=== PATIENT | female | born 2000 | race African-American/Black ===

== ENCOUNTER 2021-01-20 19:31 | Emergency (ER) | payer MEDICAID, OTHER, SELFPAY ==
--- NOTE | 2021-01-20 22:02 | RAD ---
Portable frontal chest radiograph: 01/20/2021 COMPARISON: None HISTORY: Syncope FINDINGS: Lungs are clear. Heart and mediastinal contours appear within normal limits. IMPRESSION: No acute findings.
== END 2021-01-20 23:37 | disposition home or self-care (01) ==
LOC: ERS 19:31
DX: R55 Syncope and collapse (principal); S01.511A Laceration without foreign body of lip, initial encounter; W18.2XXA Fall in (into) shower or empty bathtub, initial encounter
CPT/HCPCS: 71045; 93005

== ENCOUNTER 2022-05-21 21:34 | Emergency (ER) | payer MEDICAID, SELFPAY | END 2022-05-21 21:58 | LOC: ERS 21:34 | DX: F43.10 Post-traumatic stress disorder, unspecified (principal) | CPT/HCPCS: 99284 ==

== ENCOUNTER 2022-06-30 01:56 | Emergency (ER) | payer SELFPAY | END 2022-06-30 02:25 | disposition home or self-care (01) | LOC: ERS 01:56 | DX: F41.9 Anxiety disorder, unspecified (principal); E78.5 Hyperlipidemia, unspecified | CPT/HCPCS: 99283 ==

== ENCOUNTER 2023-06-15 16:05 | Emergency (ER) | payer SELFPAY ==
[2023-06-15 16:41] LABS: BHCG - Serum Negative (NEGATIVE); Pregs Control Background? CLEAR/WHITE (CLR/WHITE); Pregs Control Bar Appear? YES (CONTROL BAR)
== END 2023-06-15 17:08 | disposition home or self-care (01) ==
LOC: ERS 16:05
DX: Z00.00 Encounter for general adult medical examination without abnormal findings (principal)
CPT/HCPCS: 36415; 84703; 99283

== ENCOUNTER 2024-06-04 03:03 | Emergency (ER) | payer SELFPAY | END 2024-06-04 03:28 | LOC: ERS 03:03 | DX: Z02.89 Encounter for other administrative examinations (principal) | CPT/HCPCS: 99282 ==

== ENCOUNTER 2024-12-25 15:29 | Emergency (ER) | payer SELFPAY | END 2024-12-25 16:58 | LOC: ERS 15:29 | DX: R42 Dizziness and giddiness (principal); F15.90 Other stimulant use, unspecified, uncomplicated; Z02.89 Encounter for other administrative examinations | CPT/HCPCS: 99283 ==